=== PATIENT | female | born 1995 | race Hispanic/Latino ===

== ENCOUNTER 2018-10-26 09:05 | Inpatient (IN) | payer MEDICAID ==
--- NOTE | 2018-10-26 09:19 | History and Physical Report ---
History of Present Illness Date of examination: 10/26/18 Date of admission: 10/26/18 09:05 Chief complaint: I'm here for my . History of present illness: Patient is a 23 year old who presents for elective repeat at 38.4 weeks at the suggestion of [facility]. Pt's course has been complicated by morbid obesity and hypertension. All of her other testing has been normal. Past History Past Medical History: hypertension Past Surgical History: section Social history: single - Obstetrical History Expected Date of Delivery: 11/05/18 Actual Gestation: 38 Week(s) 4 Day(s) : 1 Medications and Allergies Allergies Allergy/AdvReac Type Severity Reaction Status Date / Time No Known Allergies Allergy Unverified 05/24/14 10:30 Home Medications Medication Instructions Recorded Confirmed Last Taken Type Ibuprofen [Motrin] 800 mg PO Q8H PRN #30 tablet 06/05/14 Unknown Rx Lidocain2.5%/Prilocai2.5% [Emla] 5 gm TP ONCE #1 tube 06/05/14 Unknown Rx oxyCODONE /ACETAMINOPHEN [Percocet 1 - 2 tab PO Q4HR PRN #30 tablet 06/05/14 Unknown Rx 5/325 mg] Labetalol [Normodyne TAB] 100 mg PO BID #60 tablet 06/07/14 Unknown Rx Review of Systems All systems: negative Constitutional: weight gain Respiratory: shortness of breath, dyspnea on exertion Musculoskeletal: low back pain, myalgias - Physical Exam Breasts: Positive: deferred Cardiovascular: Regular rate, Normal S1, Normal S2 Lungs: Positive: Clear to auscultation, Normal air movement Abdomen: Positive: normal appearance, soft, normal bowel sounds. Negative: distention, tenderness Genitourinary (Female): Positive: normal external genitalia, normal perenium Vulva: both: normal Vagina: Positive: normal moisture. Negative: discharge Cervix: Negative: lesion, discharge Uterus: Positive: normal size, normal contour Adnexa: both: normal Anus/Rectum: Positive: normal perianal skin, heme negative. Negative: rectal mass, hemorrhoids Extremities: Deep Tendon Reflex Grade: Normal +2 - Obstetrical FHR: auscultation normal Results All other labs normal. Assessment and Plan IUP at 38.4 here for elective repeat . Admit and prepare for surgery. Consents signed and placed on chart.
[2018-10-26] MEDS ORDERED: LACTATED RINGERS 1,000 ML IV SCH (10:00)
[2018-10-26] MEDS ORDERED: REGLAN IV NR (10:00)
[2018-10-26] MEDS ORDERED: PITOCin/NS 20 UNIT/1000ML DRIP 20 UNITS/1,000 ML BAG IV SCH ×2 (10:00→16:26)
[2018-10-26] MEDS ORDERED: PEPCID IV NR (10:00)
[2018-10-26] MEDS ORDERED: BICITRA PO NR (10:00)
--- NOTE | 2018-10-26 10:27 | Anesthesia Consultation ---
Anesthesia Consult and Med Hx Date of service: 10/26/18 - Airway Anesthetic Teeth Evaluation: Good ROM Head & Neck: Adequate Mental/Hyoid Distance: Adequate Mallampati Class: Class III Intubation Access Assessment: Probably Good - Pulmonary Exam CTA: Yes - Cardiac Exam Cardiac Exam: RRR - Pre-Operative Health Status ASA Pre-Surgery Classification: ASA3 Proposed Anesthetic Plan: Epidural - Pulmonary Hx Smoking: No Hx Asthma: No Hx Respiratory Symptoms: No SOB: No COPD: No Home Oxygen Therapy: No Hx Pneumonia: No Hx Sleep Apnea: No - Cardiovascular System Hx Hypertension: No Hx Coronary Artery Disease: No Hx Heart Attack/AMI: No Hx Angina: No Hx Percutaneous Transluminal Coronary Angioplasty (PTCA): No Hx Cardia Arrhythmia: No Hx Pacemaker: No Hx Internal Defibrillator: No Hx Valvular Heart Disease: No Hx Heart Murmur: No Hx Peripheral Vascular Disease: No - Central Nervous System Hx Neuromuscular Disorder: No Hx Seizures: No CVA: No Hx Back Pain: No Hx Psychiatric Problems: No - Gastrointestinal Hx Ulcer: No Hx Gastroesophageal Reflux Disease: No - Endocrine Hx Renal Disease: No Hx End Stage Renal Disease: No Hx Cirrhosis: No Hx Liver Disease: No Hx Insulin Dependent Diabetes: No Hx Non-Insulin Dependent Diabetes: No Hx Hypothyroidism: No Hx Hyperthyroidism: No - Hematic Hx Anemia: No Hx Sickle Cell Disease: No - Other Systems Hx Alcohol Use: No Hx Substance Use: No Hx Cancer: No Hx Obesity: Yes (morbid BMI 67)
[2018-10-26] MEDS ORDERED: ceFAZolin 3 GM in NACL 0.9% 100 ML IV NR (10:30)
--- NOTE | 2018-10-26 10:36 | Anesthesia Day of Surgery ---
Anesthesia Day of Surgery - Day of Surgery Patient Examined: Yes Patient H&P Reviewed: Yes Patient is NPO: Yes Beta Blockers: No Cardiac Clearance: No Pulmonary Clearance: No Pablo's Test: N/A
[2018-10-26 10:46] LABS: Basophils # (Auto) 0.1 K/mm3 (0.0-0.1); Basophils % (Auto) 0.7 % (0.0-1.8); Eosinophils % (Auto) 0.6 % (0.0-4.3); Lymphocytes % (Auto) 25.4 % (13.4-35.0); Mean Corpuscular HGB Conc 33 % (30-34); Mean Corpuscular Volume 82 fl (79-97); Monocytes # (Auto) 0.5 K/mm3 (0.0-0.8); Monocytes % (Auto) 6.8 % (0.0-7.3); Platelet Count 276 K/mm3 (140-440); Red Blood Count 4.78 M/mm3 (3.65-5.03); Red Cell Distribution Width 15.5 % (13.2-15.2)
[2018-10-26] MEDS ORDERED: SUBLIMAZE ONE (11:52)
[2018-10-26] MEDS ORDERED: NEO SYNEPHRINE/NS Syringe(OR USE) IV ONE ×2 (12:28→12:29)
[2018-10-26] MEDS ORDERED: NACL 0.9% IR ONE (12:37)
[2018-10-26] MEDS ORDERED: WATER FOR IRRIG STERILE IR ONE (12:37)
--- NOTE | 2018-10-26 13:57 | Procedure Note ---
OB Delivery Note - Delivery Date of Delivery: 10/26/18 Surgeon: AFUA DUNCAN Clinical Athletic Instructor: KARTIK DERAS Estimated blood loss: 1000cc - Section Preop diagnosis: repeat Postop diagnosis: same section procedure: repeat low transverse Disposition: PACU Complications: none Narrative: see op report - A at 1 minute: 8 at 5 minutes: 9 Gender: Female (4002g 02/28)
[2018-10-26] MEDS ORDERED: TORADOL ONE (14:01)
--- NOTE | 2018-10-26 14:14 | Operative Report ---
Operative Report Operative Report: The operative report for patient Vandana Brody Date of service 10/26/2018 Preoperative diagnosis: Intrauterine at 38-3/7 weeks 2. Previous x 1 3. Chronic hypertension 4. Morbid obesity Postoperative diagnosis: Same Procedure: Repeat high transverse section Surgeon: Dr. Stephanie Knott EBL: 1100 Urine output: 200 mL IV fluids: 2100 mL LR Findings: Viable female in the vertex occiput anterior position. Weight 8 lbs. 13 oz. 4002 g Apgars 9 and 9]. Otherwise normal pelvic anatomy Specimens: None Complications: None Procedure: The patient was admitted to the OR with IV running and in place. She was properly identified as herself. She was given spinal anesthesia in the OR without difficulty.. She was placed in the dorsal supine position with a leftward tilt. A Garnica catheter was inserted. She was then prepped and draped in the normal sterile fashion. An Allis test was used to confirm adequate anesthesia. Once confirmed, the incision was made with the scalpel and carried to the underlying fascia using the scalpel and the Bovie. The fascia was incised in the midline and incision was extended bilaterally using the curved Howe scissors. The fascia was then dissected from the underlying rectus muscles in a series of sharp and blunt dissection using the Howe scissors. Muscles were in the in the midline sharply using Metzenbaum scissors and the peritoneum was entered into bluntly using the surgeon's fingers. The extra large Noel retractor was placed into the incision A bladder blade was then placed into the incision to protect the bladder. Following this the bladder flap was created. Hysterotomy incision was then made in the scalpel. Upon uterine entry, the amniotic sac was ruptured for clear fluid. The infant was then delivered in the occiput anterior position with assistance from a Kiwi. Her mouth and nose were suctioned on the field. The cord was clamped and cut and she was handed to the waiting NICU personnel. The placenta was delivered manually and taken off the field. The uterus was then exteriorized and cleared of all clots and debris. The hysterotomy incision was then closed in a running locked fashion using 0 Vicryl. The abdomen was then copiously irrigated with warm normal saline. Following this the uterus was replaced into the abdominal cavity. At this point the muscles were reapproximated in the midline using individual sutures of 0 Vicryl. Following this the fascia was closed in a running fashion using 0 Vicryl. Tissue was then copiously irrigated. A retention suture was placed in the subcuticular fat. Skin was closed with shreya. The sponge lap needle and instrument counts were correct 2. The patient tolerated the procedure well. She was taken to recovery in stable condition.
[2018-10-26] MEDS ORDERED: PHENERGAN PO PRN (14:30)
[2018-10-26] MEDS ORDERED: NARCAN 0.4 MG/1 ML IV PRN ×2 (14:30→16:26)
[2018-10-26] MEDS ORDERED: ZOFRAN IV PRN ×2 (14:30→16:26)
[2018-10-26] MEDS ORDERED: PHENERGAN PR PRN (14:30)
[2018-10-26] MEDS ORDERED: BENADRYL IV PRN (14:30)
[2018-10-26] MEDS ORDERED: SODIUM CHLORIDE FLUSH SYRINGE 10 ML IV PRN (15:00)
[2018-10-26] MEDS ORDERED: fentaNYL-BUPIV 2 MCG/ML-0.125% 200 MCG/100 ML BAG EPIDURAL SCH (15:00)
[2018-10-26] MEDS ORDERED: MYLICON PO PRN (16:26)
[2018-10-26] MEDS ORDERED: LANSINOH TP PRN (16:26)
[2018-10-26] MEDS ORDERED: SODIUM CHLORIDE FLUSH SYRINGE 10 ML IV SCH (16:26)
[2018-10-26] MEDS ORDERED: TORADOL IV PRN (16:26)
[2018-10-26] MEDS ORDERED: SENOKOT PO PRN (16:26)
[2018-10-26] MEDS ORDERED: MORPHINE IV PRN (16:26)
[2018-10-26] MEDS ORDERED: TUCKS PAD TP PRN (16:26)
[2018-10-26] MEDS ORDERED: D5LR 1,000 ML IV SCH (17:26)
[2018-10-26] MEDS: PROCARDIA XL PO SCH (22:47)
[2018-10-27 01:12] LABS: Hematocrit 36.1 % (30.3-42.9); Hemoglobin 11.8 gm/dl (10.1-14.3)
[2018-10-27] MEDS: PERCOCET 5/325 PO PRN ×4 (01:35→21:06)
[2018-10-27] MEDS: IBUPROFEN PO PRN ×3 (01:35→18:08)
[2018-10-27] MEDS: PRENATAL VITAMIN PO SCH (10:17)
[2018-10-27] MEDS: PROCARDIA XL PO SCH ×2 (10:17)
[2018-10-28] MEDS: IBUPROFEN PO PRN ×2 (05:42→17:20)
--- NOTE | 2018-10-28 07:50 | Progress Note ---
Assessment and Plan POD 2 s/p ltcs. Doing well. Pt reports being tired due to being awake much of night. If all is stable, will discharge on tomorrow. Subjective - Subjective Date of service: 10/28/18 Interval history: Patient is a 23 year old who presents for elective repeat at 38.4 weeks at the suggestion of [facility]. Pt's course has been complicated by morbid obesity and hypertension. All of her other testing has been normal. Patient reports: appetite normal, voiding normally, pain well controlled, ambulating normally : doing well Objective - Vital Signs Latest vital signs: Vital Signs Temp Pulse Resp BP BP Pulse Ox 10/28/18 05:42 18 10/28/18 00:25 98.2 F 86 20 133/83 98 10/27/18 21:06 18 10/27/18 18:08 18 10/27/18 17:21 97.5 F L 100 H 20 133/84 96 10/27/18 12:47 20 10/27/18 12:46 20 10/27/18 12:28 97.4 F L 85 18 115/52 98 10/27/18 08:36 97.5 F L 89 20 123/90 96 Intake and Output 10/27/18 10/28/18 10/28/18 22:59 06:59 14:59 Intake Total 480 Balance 480 Intake: Oral 480 Other: Total, Intake Amount 240 # Voids Void 1 - Exam Breasts: Present: deferred Cardiovascular: Present: Regular rate, Normal S1, Normal S2 Lungs: Present: Clear to auscultation, Normal air movement Abdomen: Present: normal appearance, soft, normal bowel sounds Uterus: Present: normal, firm Incision: Present: normal, dry, intact
[2018-10-28] MEDS: PROCARDIA XL PO SCH (10:10)
[2018-10-28] MEDS: PRENATAL VITAMIN PO SCH (10:10)
--- NOTE | 2018-10-28 17:08 | Discharge Summary ---
Providers - Providers Date of Admission: 10/26/18 09:05 Date of discharge: 10/29/18 Attending physician: AFUA DUNCAN Primary care physician: AFUA DUNCAN Hospitalization Reason for admission: section Delivery: Procedure: repeat low transverse Episiotomy: none Incision: normal, dry, intact, dressed Other procedures: none Discharge diagnosis: IUP at term delivered baby: female Hospital course: unremarkable Condition at discharge: Good Disposition: DC-[id number] TO HOME OR SELFCARE Plan - Discharge Medications Prescriptions: Docusate Sodium [Colace] 100 mg PO BID PRN #60 capsule PRN Reason: Constipation Ibuprofen [Motrin] 800 mg PO Q8HR PRN #40 tablet PRN Reason: Pain, Moderate (4-6) Oxycodone HCl/Acetaminophen [Percocet 7.5/325 mg] 1 each PO Q6HR PRN #40 tablet PRN Reason: Pain - Provider Discharge Summary Activity: routine, no sex for 6 weeks, no heavy lifting 4 weeks, no strenuous exercise Diet: routine Instructions: routine Additional instructions: [] Smoking cessation referral if applicable(refer to patient education folder for contact #) [] Refer to [facility] Booklet Call your doctor immediately for: * Fever > 100.5 * Heavy vaginal bleeding ( >1 pad per hour) * Severe persistent headache * Shortness of breath * Reddened, hot, painful area to leg or breast * Drainage or odor from incision. * Keep incision clean and dry at all times and follow doctor's instructions regarding bathing/showering - Follow up plan Follow up: AUFA DUNCAN MD [Primary Care Provider] - 10 Days
[2018-10-28] MEDS ORDERED: PROCARDIA XL PO SCH (22:00)
[2018-10-29] MEDS: PRENATAL VITAMIN PO SCH (10:41)
[2018-10-29] MEDS: PROCARDIA XL PO SCH (10:41)
[2018-10-29 12:45] VITALS: BP 142/95
== END 2018-10-29 13:00 | disposition home or self-care (01) | DRG 765 ==
LOC: APU 09:05 → OB 18:31
PROVIDERS: ADMIT Obstetrics & Gynecology; ATTEND Obstetrics & Gynecology
PROC: 10D00Z0 Extraction of Products of Conception, High, Open Approach (ICD-10-PCS; principal; 2018-10-26)
DX: O34.219 Maternal care for unspecified type scar from previous cesarean delivery (principal); O10.92 Unspecified pre-existing hypertension complicating childbirth; E66.01 Morbid (severe) obesity due to excess calories; O99.214 Obesity complicating childbirth; Z3A.38 38 weeks gestation of pregnancy; Z37.0 Single live birth
CPT/HCPCS: 36415; 59025; 85014; 85018; 85025; 86850; 86900; 86901; 96360; G0378; A6250; J0690; J1885; J2370; J2590; J2765; J3010; J7120; J7121